=== PATIENT | male | born 1970 | race Caucasian/White ===

== ENCOUNTER 2024-10-23 10:40 | Emergency (ER) | payer BC, SELFPAY ==
[2024-10-23 10:46] VITALS: BP 163/95; PULSE 92; RESP 17; TEMP 36.9; O2SAT 95
--- NOTE | 2024-10-23 10:49 | EKG_ITS ---
[facility] Test Date: 2024-10-23 Pat Name: PAULINE JACOBSON Department: Room: - Gender: Male Field Organizer: : 1970 Requested By: Olaf Min (NANCY) Order Number: [id number] Reading MD: Olaf Min ([employer]) Measurements Intervals [place] Rate: 87 P: 73 UT: 195 QRS: -61 QRSD: 88 T: 39 QT: 352 QTc: 424 Interpretive Statements SINUS RHYTHM SEPTAL MYOCARDIAL INFARCTION , OF INDETERMINATE AGE [40+ ms Q WAVE IN V1/V2] INFERIOR MYOCARDIAL INFARCTION , OF INDETERMINATE AGE [40+ ms Q WAVE AND/OR ST/T ABNORMALITY IN II/aVF] No previous ECG available for comparison /[id number]/[email or web address]/[id number]
--- NOTE | 2024-10-23 10:49 | XR_ITS ---
Examination: PA lateral chest 2 views TECHNIQUE: Upright PA lateral chest 2 views Date and time: October 23, 2024 1124 hours INDICATIONS: Coughing 5 days chest pain today. FINDINGS: Normal heart size Exenteration basilar bronchovascular markings. No lobar pneumonia. Intact osseous structures IMPRESSION: Basilar bronchitis pattern
--- NOTE | 2024-10-23 10:49 | PD.EDRME ---
Rapid Medical Screening Exam RME Arrival date/time: 10/23/24 10:40 54-year-old male presents emergency department today for complaint of generalized fatigue patient reports he got sick last week and reports since then he been having generalized weakness shortness of breath and bodyaches Chief Complaint: Weakness Time Seen by Provider: 10/23/24 11:00 Vital signs: Vital Signs Temperature 98.4 F 10/23/24 10:46 Pulse Rate 92 10/23/24 10:46 Respiratory Rate 17 10/23/24 10:46 Blood Pressure 163/95 H 10/23/24 10:46 Pulse Oximetry (%) 95 10/23/24 10:46 Oxygen Delivery Method Room Air 10/23/24 10:46
--- NOTE | 2024-10-23 11:15 | PD.EDWEAK ---
ED Weakness RME/HPI General Chief complaint: Weakness Stated complaint: EXTREME WEAKNESS, SOB, VERY DIZZY X 5 DAYS Time Seen by Provider: 10/23/24 11:00 Arrival date/time: 10/23/24 10:40 Limitations: no limitations RME / HPI RME / HPI Narrative: Healthy 46-year-old male who is he has no chronic medical conditions here today with congestion, shortness of breath, and cough. He states he has had congestion cough for about a week and his cough started yesterday. He has no fevers or chills. Has no abdominal pain, nausea, vomit. No urinary changes. He states he has generalized fatigue. He has no other acute complaints Related Data Previous Rx's ?Medication ?Instructions ?Recorded Oxycodone Hcl/Acetaminophen 1 tab PO [id number] ##20 05/10/12 (Percocet 10-325 Mg Tablet) Allergies Allergy/AdvReac Type Severity Reaction Status Date / Time No Known Allergies Allergy Verified 10/23/24 10:43 Review of Systems Review of Systems Systems Reviewed: All systems reviewed, normal except as documented ED Exam General Limitations: Present no limitations General appearance: Present alert and in no apparent distress Head Head exam: Present atraumatic Eye Eye exam: Present normal appearance, PERRL and EOMI ENT ENT exam: Present normal exam, normal oropharynx and mucous membranes moist Neck Neck exam: Present normal inspection, full ROM and trachea midline Chest Chest inspection: Present normal inspection and symmetric chest wall rise Respiratory Respiratory exam: Present normal lung sounds bilaterally Cardiovascular Cardiovascular exam: Present regular rate, normal rhythm and normal heart sounds Abdominal Exam Abdominal exam: Present soft and normal bowel sounds Extremities Exam Extremities exam: Present normal inspection and full ROM Back Exam Back exam: Present normal inspection and full ROM Neurological Exam Neurological exam: Present alert and oriented X3 Psychiatric Psychiatric exam: Present normal affect and normal mood Skin Skin exam: Present warm, dry, intact and normal color Course Quality Measures none Orders Category Date Time Status Bedside COVID-19 Antigen Test NOW Care 10/23/24 10:49 Active Bedside Influenza A&B Antigen Test NOW Care 10/23/24 10:49 Completed EKG (ED ONLY) *Do not use* NOW Care 10/23/24 10:49 Completed EKG (ED Only) Stat Exams 10/23/24 10:49 Draft XR chest 2V Stat Exams 10/23/24 10:49 Completed CBC Stat Lab 07/15/25 11:01 Completed Comprehensive Metabolic Panel Stat Lab 10/23/24 11:01 Completed Lipase Stat Lab 10/23/24 11:01 Completed Troponin I Stat Lab 10/23/24 11:01 Completed UA, C/S IF [Urinalysis, C/S if Indicated] Stat Lab 10/23/24 11:50 Completed Vital Signs Vital signs: Vital Signs Temperature 98.4 F 10/23/24 10:46 Pulse Rate 92 10/23/24 10:46 Respiratory Rate 17 10/23/24 10:46 Blood Pressure 163/95 H 10/23/24 10:46 Pulse Oximetry (%) 95 10/23/24 10:46 Oxygen Delivery Method Room Air 10/23/24 10:46 Weakness MDM Narrative MDM Narrative:: 54-year-old male who is here today with generalized weakness. He has no chronic medical illness. His workup here is essentially unremarkable. We discussed likely viral etiology. He is invited to follow-up with his primary doctor but return at anytime for any worsening or emergent changes. Patient data External records reviewed:: None Clinical information provided by:: patient and family Social determinants that could affect healthcare access:: none Patient has the following chronic illnesses:: n/a How is presenting disease/condition affected by chronic disease/condition?: no chronic disease Evaluation data The following diagnostics were reviewed and interpreted by me:: lab results (Patient has no leukocytosis or anemia. He has hyperglycemia at 182. No other metabolic changes. UA was unremarkable.) Lab and/or radiology exams considered but not ordered:: n/a Interpretation Summary: Hyperglycemia, workup was otherwise unremarkable Medications / Prescriptions Medications or Prescriptions considered but not ordered:: n/a Medication administrations:: n/a Consultations Consultation(s) initiated? (list below): No Diagnosis Weakness Differential Diagnosis: anemia, sepsis and dehydration Most likely diagnosis given after review of the tests above:: Hyperglycemia, viral syndrome Admission Indicated Admission indicated?: not indicated Admission Request Was there a request for admission?: No Disposition Plan Disposition Plan: Discharge Discharge Attestation Discharge Attestation: The patient and all family members were given an opportunity to ask questions and understood the discharge instructions. Discharge instructions specifically effects, indications for sooner follow up or return to the emergency department, and the expected course of current diagnosis. Patient condition: Stable Discharge Plan Plan Patient Disposition: HOME (Self Care) Patient condition on transfer: Stable Prescriptions/Referrals Prescriptions/Med Rec: No Action Oxycodone Hcl/Acetaminophen (Percocet 10-325 Mg Tablet) 1 TAB tablet 1 tab PO [id number] Qty: 20 0RF Referrals: Lalo Holloway MD [Primary Care Provider] - In 1 week Problem List Clinical Impression: Acute viral syndrome, Acute hyperglycemia Patient/Caregiver Discharge Instructions Education Materials: ED Viral Syndrome (Adult) Additional Instructions: - Maintain oral hydration. Use ibuprofen and Tylenol as needed. - Your blood sugar was 182. Within normal ranges 74-1 06 follow-up with your primary doctor for close recheck. -Return as needed for any worsening or emergent changes. Print Language: Mongolian Stand Alone Forms: Kiera Award Info., Patient Portal Info Letter
[2024-10-23 11:30] LABS: Basophils # (Auto) 0.0 Thou/mm3 (0.0-0.2); Basophils % (Auto) 1 % (0-2.5); Eosinophils # (Auto) 0.2 Thou/mm3 (0.0-0.5); Eosinophils % (Auto) 3 % (0-10); Hematocrit 48.4 % (41.0-53.0); Hemoglobin 17.1 g/dL (13.5-16.0); Immature Granulocytes Auto 0.01 Thou/mm3 (0.00-0.00); Lymphocytes # (Auto) 2.4 Thou/mm3 (1.0-4.8); Lymphocytes % (Auto) 31 % (10-50); Mean Corpuscular HGB Conc 35.3 g/dl (31.0-37.0); Mean Corpuscular Hemoglobin 30.4 pg (25.0-35.0); Mean Corpuscular Volume 86 fL (80-100); Monocytes # (Auto) 0.5 Thou/mm3 (0.0-0.8); Monocytes % (Auto) 6 % (0-12); Neutrophils # (Auto) 4.6 Thou/mm3 (1.8-7.7); Neutrophils % (Auto) 59 % (37-80); Nucleated Red Blood Cell # 0.00 Thou/mm3 (0.00-0.00); Nucleated Red Blood Cell % 0 /100 WBC (0); Platelet Count 221 Thou/mm3 (140-440); RDW Standard Deviation 40.9 fL (35.1-43.9); Red Blood Count 5.62 Miln/mm3 (4.50-5.90); White Blood Count 7.8 Thou/mm3 (3.8-10.6)
[2024-10-23 11:47] LABS: Alanine Aminotransferase 20 U/L (10-49); Albumin, Serum 4.4 gm/dL (3.5-5.0); Albumin/Globulin Ratio 1.5 (1.2-2.2); Alkaline Phosphatase 80 U/L (46-116); Anion Gap 9 (7-16); Aspartate Amino Transferase 22 U/L (0-34); BUN/Creatinine Ratio 13 Ratio (12-20); Bilirubin,Total 0.7 mg/dL (0.3-1.2); Blood Urea Nitrogen 12 mg/dL (9-23); Calcium 9.4 mg/dL (8.3-10.6); Calcium (Corrected) 9.4 mg/dL (8.5-10.1); Carbon Dioxide 23.0 mMol/L (20.0-31.0); Chloride 107 mMol/L (98-107); Creatinine (Component) 0.9 mg/dL (0.6-1.3); Globulin 3.0 gm/dL (2.3-3.5); Glucose 182 mg/dL (74-106); Lipase 20 U/L (12-53); Osmolality,Calculated 282 (275-295); Potassium 4.4 mMol/L (3.4-5.1); Sodium 139 mMol/L (136-145); Total Protein 7.4 gm/dL (5.7-8.2); Troponin I < 0.020 ng/mL (0.0-0.045); eGFR > 60 See Note
[2024-10-23 12:12] LABS: Collection Type, Urine Clean Catch
[2024-10-23 12:20] LABS: Amorphous Crystals,Urine Present (Absent); Bacteria,Urine Rare; Bilirubin,Urine Negative (Negative); Blood,Urine Negative (Negative); Color,Urine Yellow (Lt Yel-Yel); Culture Indicated,Urine Not Indicated; Glucose, Urine Negative (Negative); Ketones,Urine Negative (Negative); Leukocyte Esterase,Urine Negative (Negative); Nitrite,Urine Negative (Negative); PH,Urine 7.0 (5.0-7.0); Protein,Urine Negative (Neg - Trace); RBC,Urine 2 /hpf (0-3); Specific Gravity,Urine 1.024 (1.001-1.035); Squamous Epithelial Cell,Urine < 1 /hpf (0-5); Urobilinogen,Urine Negative mg/dL (0.0-1.0); WBC,Urine < 1 /hpf (0-5)
[2024-10-23 12:41] VITALS: BP 146/98; PULSE 74; RESP 18; O2SAT 95
[2024-10-23 12:42] LABS: Clarity,Urine Hazy (Clear/Hazy)
[2024-10-23 14:25] VITALS: BP 140/89; PULSE 75; RESP 18; O2SAT 94
[2024-10-23 14:53] VITALS: BP 141/88; PULSE 80; RESP 18; TEMP 37.1; O2SAT 94
== END 2024-10-23 14:54 | disposition home or self-care (01) ==
PROVIDERS: Nurse Practitioner Primary Care; Emergency Provider Emergency Medicine; PCP Family Medicine
DX: B34.9 Viral infection, unspecified (principal); R94.31 Abnormal electrocardiogram [ECG] [EKG]
CPT/HCPCS: 36415; 71046; 80053; 81001; 83690; 84484; 85025; 87400; 87811; 93005; 99284